=== PATIENT | female | born 1970 | race Caucasian/White ===

== ENCOUNTER 2016-11-15 07:40 | Outpatient (CLI) | payer MEDICAID | END 2016-11-15 07:41 | disposition home or self-care (01) | DX: Z01.419 Encounter for gynecological examination (general) (routine) without abnormal findings (principal) ==

== ENCOUNTER 2019-07-19 10:55 | Outpatient (CLI) | payer MEDICAID, OTHER ==
[2019-07-19 23:22] LABS: CANDIDA GROUP DNA POSITIVE (NEGATIVE); CANDIDA KRUSEI DNA NEGATIVE (NEGATIVE); TRICHOMONAS VAGINALIS DNA NEGATIVE (NEGATIVE)
== END 2019-07-19 23:59 | disposition home or self-care (01) ==
LOC: LAB.R 10:55
PROVIDERS: ATTEND Family Medicine
DX: R30.0 Dysuria (principal); N76.0 Acute vaginitis
CPT/HCPCS: 87086; 87661; 87801

== ENCOUNTER 2021-11-02 12:11 | Outpatient (CLI) | payer OTHER ==
--- NOTE | 2021-11-02 12:54 | XRAY Report ---
PROCEDURE: Ankle 3 View LT INDICATIONS: LEFT ANKLE PAIN TECHNIQUE: 3 views of the ankle were acquired. COMPARISON: None. FINDINGS: BONES: Mild, oblique fracture of the distal fibula which appears to extend to the ankle mortise. The remaining visualized osseous structures appear maintained. Plantar calcaneal enthesophyte. SOFT TISSUES: Lateral soft tissue swelling. IMPRESSION: 1.Mild, oblique fracture of the distal fibula. Reviewed by: Tai Goodwin MD on 11/02/2021 12:53 PM [facility] Approved by: Tai Goodwin MD on 11/02/2021 12:53 PM [facility] Station ID: [id number]
== END 2021-11-02 12:12 | disposition home or self-care (01) ==
LOC: DI.S 12:11
PROVIDERS: ATTEND Physician Assistant
DX: S82.432A Displaced oblique fracture of shaft of left fibula, initial encounter for closed fracture (principal)